=== PATIENT | male | born 1975 | race Caucasian/White ===

== ENCOUNTER 2017-11-03 06:35 | Day surgery (SDC) | payer BC ==
[2017-11-03] MEDS ORDERED: Bupivacaine 0.5%/EPINEPHrine 1:200,000 50 ML MDV ONE (06:52)
[2017-11-03] MEDS ORDERED: Lactated Ringers 1,000 ML IV SCH (07:00)
[2017-11-03] MEDS ORDERED: fentaNYL 250 MCG/5 ML SDV ONE (07:10)
[2017-11-03] MEDS ORDERED: Propofol 200 MG/20 ML SDV ONE ×2 (07:10→07:57)
[2017-11-03] MEDS ORDERED: Midazolam 1 MG/ML 2 ML SDV ONE (07:10)
[2017-11-03] MEDS ORDERED: ceFAZolin 2 GM in Premix Bag 1 BAG IV ONE (07:30)
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
== END 2017-11-03 09:45 | disposition home or self-care (01) ==
LOC: JP.SDS 06:35
PROVIDERS: ATTEND Orthopaedic Surgery
DX: T84.84XA Pain due to internal orthopedic prosthetic devices, implants and grafts, initial encounter (principal); F17.210 Nicotine dependence, cigarettes, uncomplicated
CPT/HCPCS: 20680; 36415; 76000; 85027; J0690; J2250; J2704; J3010; J3490

== ENCOUNTER 2020-08-01 08:10 | Emergency (ER) | payer OTHER, BC ==
[2020-08-01] MEDS ORDERED: Bupivacaine 0.5% 10 ML SDV INJECT ONE (08:37)
[2020-08-01] MEDS ORDERED: Diphtheria,Pertussis(Acell),Tetanus Vaccine 0.5 ML Syringe IM ONE (08:37)
[2020-08-01] MEDS ORDERED: Bacitracin Oint 1 GM U/D Packet TOP ONE (08:37)
--- NOTE | 2020-08-01 08:52 | EDM.PDOC ---
ED HPI GENERAL MEDICAL PROBLEM - General Chief Complaint: Upper Extremity Injury/Pain Stated Complaint: RIPPED NAIL OFF LT THUMB Time Seen by Provider: 08/01/20 08:30 Source of Information: Reports: Patient History Limitations: Reports: No Limitations - History of Present Illness INITIAL COMMENTS - FREE TEXT/NARRATIVE: 45-year-old male involved in an industrial accident at work where a sharp edge piece of metal a avulsed the thumbnail off of his left thumb. He also has a slight spooned out laceration of the nailbed and the paronychia are also shaved down slightly. He has no bony tenderness. There is some slow oozing from the nailbed. The nail matrix looks like it is probably normal and uninvolved. No other injury, no other complaints, it is fairly painful. He is due for a tetanus update. Onset: Sudden Duration: Hour(s): (Within the last hour) Location: Reports: Upper Extremity, Left Associated Symptoms: Reports: No Other Symptoms left thumb Pain Score (Numeric/FACES): 8 - Related Data Allergies Allergy/AdvReac Type Severity Reaction Status Date / Time No Known Allergies Allergy Verified 08/01/20 08:22 Home Meds: Home Meds NK [No Known Home Meds] 08/01/20 [History] Past Medical History Musculoskeletal History: Reports: Fracture, Other (See Below) Other Musculoskeletal History: L ankle pain - Infectious Disease History Infectious Disease History: Reports: Chicken Pox - Past Surgical History GI Surgical History: Reports: Appendectomy Musculoskeletal Surgical History: Reports: Other (See Below) Other Musculoskeletal Surgeries/Procedures:: left ankle surgery Social & Family History - Tobacco Use Tobacco Use Status *Q: Current Every Day Tobacco User Years of Tobacco use: 28 Packs/Tins Daily: 0.7 - Caffeine Use Caffeine Use: Reports: None Other Caffeine Use: occ. - Alcohol Use Days Per Week of Alcohol Use: 2 Number of Drinks Per Day: 6 Total Drinks Per Week: 12 - Recreational Drug Use Recreational Drug Use: No Review of Systems - Review of Systems Review Of Systems: See Below Constitutional: Denies: Fever Respiratory: Reports: No Symptoms Cardiovascular: Reports: No Symptoms Musculoskeletal: Reports: No Symptoms Neurological: Denies: Paresthesia ED EXAM, GENERAL - Physical Exam Exam: See Below Exam Limited By: No Limitations General Appearance: Alert, Anxious Respiratory/Chest: No Respiratory Distress Extremities: Other (Exam is limited to the left hand. The patient has a horizontal avulsion laceration across the extensor surface of the left thumb which has removed with the thumbnail and also superficially lacerated the paronychia and center of the nailbed. The nail matrix looks like it is probably not involved.) Neurological: Alert, Oriented Psychiatric: Anxious Course - Vital Signs Last Recorded V/S: Last Vital Signs Temp 97.7 F 08/01/20 08:24 Pulse 84 08/01/20 08:24 Resp 18 08/01/20 08:24 BP 132/84 08/01/20 08:24 Pulse Ox 96 08/01/20 08:24 - Orders/Labs/Meds Meds: Medications Discontinued Medications Generic Name Dose Route Start Last Admin Trade Name Myron PRN Reason Stop Dose Admin Bacitracin 1 dose 08/01/20 08:37 08/01/20 08:44 Bacitracin Oint 1 Gm U/D Packet TOP 08/01/20 08:38 1 dose ONETIME ONE Administration Bupivacaine HCl 10 ml 08/01/20 08:37 08/01/20 08:44 Bupivacaine 0.5% 10 Ml Sdv INJECT 08/01/20 08:38 10 ml ONETIME ONE Administration Diphtheria/Tetanus/Acell Pertussis 0.5 ml 08/01/20 08:37 08/01/20 08:45 Diphtheria,Pertussis(Acell),Tetanus Vaccine 0.5 Ml Syringe IM 08/01/20 08:38 0.5 ml .ONCE ONE Administration - Re-Assessments/Exams Free Text/Narrative Re-Assessment/Exam: 08/01/20 08:51 0.5% Marcaine digital block was applied to reduce pain, the wound was cleaned, topical bacitracin and nonstick dressing applied along with tube gauze. He will be discharged with 10 hydrocodone for some extra pain control, and encouraged to take a regular dose of anti-inflammatory and so can change dressings daily for at least the next 5 to 7 days. He was also provided with a small aluminum splint to wear for protection. He can recheck at any time if he feels he is not healing satisfactorily. Departure - Departure Time of Disposition: 09:02 Disposition: Home, Self-Care 01 Clinical Impression: Laceration of left thumb with damage to nail Qualifiers: Encounter type: initial encounter Foreign body presence: without foreign body Qualified Code(s): S61.112A - Laceration without foreign body of left thumb with damage to nail, initial encounter - Discharge Information Instructions: Laceration Care, Adult Referrals: PCP,None [Primary Care Provider] - Forms: ED Department Discharge Care Plan Goals: Soak daily in warm water and Dreft detergent, cover with a small amount of antibiotic ointment and bandages daily to protect the wound. Use the overlying aluminum splint for extra protection. A regular dose of ibuprofen or naproxen will be helpful for the next several days, use hydrocodone for extra pain control if needed. Return anytime if concerns that you are not healing satisfactorily. Sepsis Event Note (ED) - Evaluation Sepsis Screening Result: No Definite Risk - Focused Exam Vital Signs: Vital Signs Temp Pulse Resp BP Pulse Ox 08/01/20 08:24 97.7 F 84 18 132/84 96
== END 2020-08-01 09:01 | disposition home or self-care (01) ==
LOC: JP.ED 08:10
DX: S61.112A Laceration without foreign body of left thumb with damage to nail, initial encounter (principal); Z72.0 Tobacco use; Z23 Encounter for immunization; W26.8XXA Contact with other sharp object(s), not elsewhere classified, initial encounter; Y99.0 Civilian activity done for income or pay
CPT/HCPCS: 64450; 90471; 90715; 99282; J3490

== ENCOUNTER 2022-12-13 23:28 | Emergency (ER) | payer BC ==
[2022-12-13] MEDS ORDERED: Prochlorperazine 10 MG/2 ML SDV IVPUSH ONE (23:56)
[2022-12-13] MEDS ORDERED: Sodium Chloride 0.9% 10 ML Syringe FLUSH PRN (23:56)
[2022-12-13] MEDS ORDERED: Sodium Chloride 0.9% 1,000 ML IV ONE (23:56)
[2022-12-14] MEDS ORDERED: Amoxicillin/Clavulanate K 875-125 MG Tab PO ONE (00:48)
== END 2022-12-14 01:14 | disposition home or self-care (01) ==
LOC: JP.ED 23:28
DX: G43.009 Migraine without aura, not intractable, without status migrainosus (principal); K02.9 Dental caries, unspecified; Z86.16 Personal history of COVID-19; Z72.0 Tobacco use
CPT/HCPCS: 96361; 96374; 99283; A9270; J0780; J7030

== ENCOUNTER 2023-01-11 08:59 | Emergency (ER) | payer OTHER, BC ==
[2023-01-11] MEDS ORDERED: Proparacaine 0.5% Ophth Soln 15 ML Bottle EYEBOTH ONE (09:02)
[2023-01-11] MEDS ORDERED: Fluorescein 1 MG Ophth Strip EYEBOTH ONE (09:03)
[2023-01-11] MEDS ORDERED: Erythromycin Base 0.5% Ophth Oint 1 GM Tube EYEBOTH ONE (09:03)
== END 2023-01-11 10:12 | disposition home or self-care (01) ==
LOC: JP.ED 08:59
DX: H15.101 Unspecified episcleritis, right eye (principal); Z86.16 Personal history of COVID-19
CPT/HCPCS: 99282; A9270